=== PATIENT | male | born 1965 | race Caucasian/White ===

== ENCOUNTER 2018-03-29 03:02 | Emergency (ER) | payer SELFPAY, OTHER ==
[2018-03-29] MEDS: OXYCODONE/APAP 5MG/325MG(BULK FOR ED) 1 TABLET PO (03:29)
[2018-03-29] MEDS: PERCOCET 5MG/325MG TAB PO (03:29)
[2018-03-29] MEDS: CLINDAMYCIN 150 MG CAP PO (03:30)
== END 2018-03-29 03:42 | disposition home or self-care (01) ==
LOC: M ED 03:02
DX: K04.7 Periapical abscess without sinus (principal); F33.9 Major depressive disorder, recurrent, unspecified; F41.9 Anxiety disorder, unspecified; Z79.899 Other long term (current) drug therapy; Z88.1 Allergy status to other antibiotic agents; F17.210 Nicotine dependence, cigarettes, uncomplicated
CPT/HCPCS: 99282